=== PATIENT | female | born 1970 | race Caucasian/White ===

== ENCOUNTER 2017-07-02 13:35 | Emergency (ER) | payer MEDICARE, MEDICAID ==
[2017-07-02] MEDS ORDERED: Acetaminophen/Codeine 30-300mg Tablet ONE (14:51)
[2017-07-02] MEDS ORDERED: Dexamethasone 10 MG/ML VIAL ONE (14:52)
[2017-07-02] MEDS ORDERED: Ibuprofen 600 MG TAB ONE (14:52)
== END 2017-07-02 15:19 | disposition home or self-care (01) ==
LOC: SCSER 13:35
DX: M17.12 Unilateral primary osteoarthritis, left knee (principal); F32.9 Major depressive disorder, single episode, unspecified
CPT/HCPCS: 96372; J1100

== ENCOUNTER 2017-12-10 16:02 | Emergency (ER) | payer MEDICARE, MEDICAID ==
[2017-12-13 10:31] LABS: Chlamydia by PCR DETECTED (NotDetected); GC by PCR Not Detected (NotDetected)
== END 2017-12-10 16:49 | disposition home or self-care (01) ==
LOC: SCSER 16:02
DX: B37.2 Candidiasis of skin and nail (principal); E78.00 Pure hypercholesterolemia, unspecified; F32.9 Major depressive disorder, single episode, unspecified
CPT/HCPCS: 87480; 87491; 87510; 87591; 87660; 99283

== ENCOUNTER 2018-09-28 04:45 | Inpatient (IN) | payer MEDICARE, MEDICAID ==
[2018-09-28 06:02] LABS: Bilirubin Negative (Negative); Blood, Urine Large (Negative); Clarity CLEAR (Clear); Glucose, Urine (Dipstick) Negative (Negative); Leukocyte Moderate (Negative); Nitrite Negative (Negative); Protein, Urine (Dipstick) Negative (Neg-Trace); Specific Gravity, Urine 1.008 (1.002-1.036); pH, Urine 5.5 (5.0-9.0)
[2018-09-28 06:05] LABS: Bacteria/HPF None Seen HPF (None Seen); Hyaline Casts/LPF 0-3 HYALINE CAST LPF (0-3 Hyaline); Pathc Cast-AUWi Flag 0.14 (0-2.49); Squamous Epithelial 0-3 HPF (0-3)
[2018-09-28] MEDS ORDERED: Ondansetron PF 4 MG/2 ML Vial ONE (06:05)
[2018-09-28] MEDS ORDERED: Morphine 4 MG/ML VIAL ONE ×2 (06:05→06:37)
[2018-09-28] MEDS ORDERED: Acetaminophen 500 MG TAB ONE (06:05)
--- NOTE | 2018-09-28 06:49 | PDOC.FPRHP ---
- History of Present Illness History of Present Illness: 48 yo F with PMH mild MR, adrenal insufficiency, and HTN presents for worsening rash over abdomen and into groin area. Patient does not know how long she has had the rash. States she has been using over the counter creams and corn starch. Pt reported cough, congestion, dysuria. Denied fever. Pt was in pain on presentation and was mildly tachycardic. WBC was elevated to 16.5. Pt started on vanc, cefepime, clinda, and fluconazole. Given morphine for pain. - Allergies/Adverse Reactions Allergies Allergy/AdvReac Type Severity Reaction Status Date / Time iodine Allergy Verified 04/08/13 05:25 Penicillins Allergy Verified 04/08/13 05:25 - Home Medications Medication Instructions Recorded Confirmed Type Amitriptyline HCl [Elavil] 100 mg PO HS 04/08/13 04/08/13 History Atorvastatin Calcium 40 mg PO DAILY 04/08/13 04/08/13 History Benztropine Mesylate 1 mg PO HS 04/08/13 04/08/13 History Citalopram Hydrobromide 40 mg PO DAILY 04/08/13 04/08/13 History [Citalopram HBr] Divalproex Sodium [Divalproex 1,000 mg PO HS 04/08/13 04/08/13 History Sodium ER] Lorazepam [Ativan] 0.5 mg PO Q6HR PRN 04/08/13 04/08/13 History predniSONE 3 mg PO BID 04/08/13 04/08/13 History Levothyroxine Sodium [Synthroid] 75 mcg PO DAILY 04/09/13 04/09/13 History - History PMHx: hypothyroid, adrenal insufficiency, mild mental retardation, bipolar, heart murmur, elevated BP without dx of HTN, chronic low back pain, hypersomnia , obeisty, HLD, PSHx: teeth removed FHx: Cancer: mGM with ovarian cancer, mUncle with esophageal cancer. DM in father family. Social: smoking on and off for years, unknown pack years. Quit about 1 year ago. Denies alcohol or drug use. Per ED, patient lives with a caregiver. Per mother (who is MPOA but does not know much of her medical history) patient lives at home by herself. - Review of Systems General: denies: fever/chills, weight/appetite/sleep changes Eyes: reports: eye pain. denies: vision changes ENT: reports: nasal congestion, rhinorrhea Respiratory: reports: cough, congestion. denies: shortness of breath Gastrointestinal: reports: nausea, vomiting (x1 episode), abdominal pain Genitourinary: reports: incontinence (occasional), dysuria, polyuria Skin: reports: rashes (see HPI), lesions Musculoskeletal: reports: pain (over abdomen, "all over" per patient) Neurological: denies: numbness, weakness Psychological: reports: anxiety, depression - Vital signs BP: [146/75] HR: [109] RR: [20] Tmax: [99.8] Pox: [97]% on [RA] Wt: [127 kg] - Physical Exam Constitutional: NAD, awake, alert and oriented HEENT: normocephalic and atraumatic, PERRLA, EOMI, conjunctiva clear, grossly normal hearing, MMM, other (poor dentition) Neck: supple, no LAD Heart: RRR, normal S1/S2, no murmurs/rubs/gallops, pulses present Lungs: CTAB, no respiratory distress, good air movement, no rales/rhonchi, no wheezing Abdomen: soft, bowel sounds present, other (Erythematous, warm, indurated rash in umbilicus, thick underneath pannus traveling laterally to left flank, down bilaterally into creases of groin onto labia) Musculoskeletal: normal structure, normal tone Neurological: no focal deficit Skin: other (Erythematous, painful, warm, indurated rash in umbilicus, thick underneath pannus traveling laterally to left flank, down bilaterally into creases of groin onto labia) Psychiatric: normal mood and affect, other (poor memory, poor historian, poor judgment) FMR H&P: Results - Labs Result Diagrams: 09/28/18 06:25 09/28/18 06:25 Lab results: Urine Ketones Negative mg/dL (Negative) 09/28/18 05:30 Urine Blood Large (Negative) H 09/28/18 05:30 Urine Nitrite Negative (Negative) 09/28/18 05:30 Ur Leukocyte Esterase Moderate (Negative) H 09/28/18 05:30 Urine RBC 7-10 HPF (0-3) H 09/28/18 05:30 Urine WBC 7-10 HPF (0-3) H 09/28/18 05:30 Ur Squamous Epith Cells 0-3 HPF (0-3) 09/28/18 05:30 Urine Bacteria None Seen HPF (None Seen) 09/28/18 05:30 - EKG Interpretation EKG: tachycardic 105, otherwise NSR Twave inversion in lead III, V1 and V3 FMR H&P: A/P - Problem List (1) Cellulitis Current Visit: Yes Status: Acute Code(s): L03.90 - CELLULITIS, UNSPECIFIED (2) Adrenal insufficiency Current Visit: Yes Status: Chronic Code(s): E27.40 - UNSPECIFIED ADRENOCORTICAL INSUFFICIENCY (3) Sepsis Current Visit: Yes Status: Resolved Code(s): A41.9 - SEPSIS, UNSPECIFIED ORGANISM (4) Intellectual disability Current Visit: Yes Status: Chronic Code(s): F79 - UNSPECIFIED INTELLECTUAL DISABILITIES (5) Bipolar 1 disorder Current Visit: Yes Status: Chronic Code(s): F31.9 - BIPOLAR DISORDER, UNSPECIFIED (6) Heart murmur Current Visit: Yes Status: Chronic Code(s): R01.1 - CARDIAC MURMUR, UNSPECIFIED (7) Hypothyroid Current Visit: Yes Status: Chronic Code(s): E03.9 - HYPOTHYROIDISM, UNSPECIFIED (8) Obesity Current Visit: Yes Status: Chronic Code(s): E66.9 - OBESITY, UNSPECIFIED - Plan Cellulitus -Most likely fungal that has spread intertriginously, along pannus to left flank and down into groin -Erythematous, painful, warm, indurated rash in umbilicus, thick underneath pannus traveling laterally to left flank, down bilaterally into creases of groin onto labia -Started Vanc, cefepime, fluconazole, and clindamycin -MIVF LR @ 150 -Consider imaging of abdomen to look for underlying abscesses as patient may not tolerate ultrasound -Nystatin -Wound care consulted -Morphine, tramadol, tylenol for pain control Sepsis (resolved) -Presented in pain with tachycardia, tachycardia resolved. WBC elevated -Blood cultures pending, on abx and IVF Adrenal insufficiency -Triple her home dose of hydrocortisone (now 30 mg in AM, and 15 in PM) x 3 days starting 09/28/18 Bipolar -Home medications Mild Intellectual disability -Pt should not be living on her own, seems unable to appropriately care for self Heart murmur -Aware Hypothyroidism - home medication - check TSH Elevated BP w/o Htn -home medications Obesity Dispo: >2 midnights Lovenox for PPX Diet: regular Code status: Chemical code, with shocks for resuscitation if indicated. Patient does not want chest compressions or intubation. Patient understands that she could without resuscitation. Mother (ANDREW) at bedside during discussion. FMR H&P: Upper Level - Pertinent history 48 yo WF PMH Bipolar disorder, anxiety, depression, hypothyroidism, obesity, and adrenal insufficiency. She presents to the ER with a CC of vaginal itching and a lower abdominal skin rash. Patient is poor historian and does not know how long the rash has been developing. She states she has tried OTC antifungal cream and corn starch. Mother present at bedside and states she believes the rash developed sometime in the last 2-3 weeks but is not sure. Patient denies fever/chills. Reports abdominal pain associated with the skin rash. ER course: Labs, clinda 900 mg IV, Cefepime 2g IV, vanc 1g IV, morphine 8 mg IVP , Zofran, APAP 1g, NS 1L. - Pertinent findings Vitals: initial pulse 109 but at time of exam 86. Vitals otherwise WNL. GEN: NAD, A&Ox4, childish behavior, poor historian. ENT: Poor dentition CV: RRR, no murmur Pulm: CTA-B, normal effort. Abdomen: Tenderness over skin infection, obese Skin: Large area of excoriated, erythematous, and indurated skin extending from the umbilicus to the superior portion of the vagina and laterally approximately 12 inches. It is difficult to estimate the entire area as much of the infected skin is under her pannus. Labs: Na 131, Cr 0.96, GFR 63 (at baseline), lactic acid 1.5. WBC 16.5, Hemoglobin 11.9, Neutrophils 69.5, monocytes 13.4, UA Blood large, LE moderate - Plan Date/Time: 09/28/18 0644 I, Terry Fernandez MD, have evaluated this patient and agree with findings/plan as outlined by sport intern resident. Pertinent changes/additions are listed here. 1. Sepsis (resolved) 2/2 Cellulitis: patient was initially mildly tachycardic which had resolved by the time of my examination. She also has a white count. Her skin infection likely started as candidisis that now has a superimposed bacterial infection. Start Vanc, Clinda, cefepime, and IV fluconazole initially and will transition to PO once cellulitis improves. Will also give nystatin powder on the effected area. Would also consider imaging her abdomen to rule out underlying abscess as physical exam is difficult and limited by her morbid obesity. Will consult wound care for recommendations. Consider general surgery consultation if concern for underlying abscess. Blood cultures taken in the ER. PRN morphine for pain. 2. Adrenal insufficiency: Takes hydrocortisone 10 mg qAM and 5 mg qHS. Will triple dose for 3 days during acute phase of illness then return to base dosing 3. Hypothyroidism: check TSH, continue synthroid 4. Intellectual disability: CM consult for discharge planning. At minimum, the patient needs home health but I believe she would do better in a [place] [facility] care facility. 5. Bipolar disorder: continue meds. 6. Obesity: stable 7. Chronic back pain: home meds. 8. Diet: Regular 9. PPx: Lovenox 10 CODE: chemical code, defibrilation only. While the patient does have some degree of intellectual disability, I believe she understands what would happen to her in the event cardiac/respiratory arrest. Discussed with Dr. Leung. Addendum - Attending - Attending Attestation Date/Time: 09/28/18 1038 I personally evaluated the patient and discussed the management with Dr. Womack. I agree with the History, Examination, Assessment and Plan documented above with any addition or exceptions noted below. The patient presents with a rash for unknown period of time. Pt's mom initially stated that she's been fighting the rash for about a year and states it could have been bad for a week to a month. It appears the patient had been using corn starch and hydrogen peroxide. The rash extends from under umbilicus to perinuem but stops before the anus and is red, tender to palpation with macerated skin. Will continue IV antibiotics clindamycin and cefepime. Stop vanc. Continue fluconazole. Pt will have a wound care consult. Pt also has adrenal insufficiency and stress dose of steroids will be given.
[2018-09-28 06:54] LABS: #Basophils 0.1 thou/uL (0.0-0.2); #Eosinphils 0.1 thou/uL (0.0-0.7); #Lymphocytes 2.7 thou/uL (1.20-3.40); #Monocytes 2.2 thou/uL (0.11-0.59); #Neutrophils 11.4 thou/uL (1.40-6.50); %Basophils 0.4 % (0.0-1.0); %Eosinophils 0.5 % (0.0-10.0); %Lymphocytes 16.5 % (21.0-51.0); %Monocytes 13.4 % (0.0-10.0); %Neutrophils 69.2 % (42.0-75.0); Hemoglobin 11.9 g/dL (12.0-16.0); Mean Corpuscular HGB CONC 32.8 g/dL (32.0-36.0); Mean Corpuscular Hemoglobin 30.9 pg (27.0-31.0); Mean Corpuscular Volume 94.3 fL (78.0-98.0); Mean Platelet Volume 9.9 fL (7.4-10.4); Platelet Count 243 thou/uL (130-400); Red Blood Cell (RBC) Count 3.85 mill/uL (4.20-5.40); White Blood Cell (WBC) Count 16.5 thou/uL (4.8-10.8)
[2018-09-28] MEDS ORDERED: VANCOMYCIN IVPB PRN (06:55)
[2018-09-28] MEDS ORDERED: Clindamycin/D5W 900 MG in Premix Bag 1 BAG IVPB SCH (07:00)
[2018-09-28] MEDS ORDERED: Cefepime 2 GM in Sodium Chloride 0.9% 100 ML IVPB SCH (07:00)
[2018-09-28] MEDS ORDERED: Morphine 4 MG/ML VIAL SLOW IVP PRN (07:07)
[2018-09-28 07:21] LABS: ALT (SGPT) 8 U/L (8-55); AST (SGOT) 21 U/L (5-34); Acetaminophen Less than 6.0 mcg/mL (10.0-30.0); Albumin 3.4 g/dL (3.5-5.0); Alcohol Less than 10 mg/dL (Less than 10); Alkaline Phosphatase 75 U/L (40-150); Anion Gap 11 mmol/L (10-20); BUN (Urea Nitrogen) 13 mg/dL (7.0-18.7); Bilirubin, Total 0.9 mg/dL (0.2-1.2); Calc. Creatinine Clearance 0 mL/min (70-130); Carbon Dioxide 24 mmol/L (22-29); Chloride 100 mmol/L (98-107); Estimated GFR-MDRD 63; Globulin 3.9 g/dL (2.4-3.5); Glucose 116 mg/dL (70-105); Lipase 7 U/L (8-78); Potassium 4.4 mmol/L (3.5-5.1); Protein, Total 7.3 g/dL (6.0-8.3); Salicylate Less than 8.0 mg/dL (15.0-30.0); Sodium 131 mmol/L (136-145)
[2018-09-28] MEDS ORDERED: traMADol HCl 50 MG TAB PO PRN (07:22)
[2018-09-28] MEDS ORDERED: Nystatin Powder 15 GM BOT TOP PRN (07:28)
[2018-09-28] MEDS ORDERED: risperiDONE 1 MG TAB PO SCH ×3 (07:30→21:00)
[2018-09-28] MEDS ORDERED: Hydrocortisone 10 mg Tablet PO SCH (07:30)
[2018-09-28] MEDS ORDERED: Acetaminophen 325 MG TAB PO PRN (08:47)
[2018-09-28] MEDS ORDERED: Acetaminophen 650 MG Suppository PR PRN (08:47)
[2018-09-28] MEDS ORDERED: buPROPion 75 MG TAB PO SCH (09:00)
[2018-09-28] MEDS ORDERED: CITALOPRAM HYDROBROMIDE 40 MG PO SCH (09:00)
[2018-09-28 11:45] VITALS: BMI 39.8
[2018-09-28] MEDS ORDERED: HYDROcodone/Acetaminophen 5/325 mg Tablet PO PRN (12:10)
[2018-09-28] MEDS: Clindamycin/D5W 600 MG in Premix Bag 1 BAG IVPB SCH ×2 (12:21→18:44)
[2018-09-28] MEDS: Lactated Ringer's 1,000 ML IV SCH ×3 (13:10→20:55)
[2018-09-28] MEDS: Atorvastatin Calcium 40 MG TAB PO SCH (13:10)
[2018-09-28] MEDS: Citalopram 20 MG TAB PO SCH (13:11)
[2018-09-28] MEDS: Fluconazole In NaCl,Iso-Osm 400 MG in Premix Bag 1 BAG IVPB SCH (13:12)
[2018-09-28] MEDS: Enoxaparin Sodium 40 MG/0.4 ML SYRINGE SC SCH (13:12)
[2018-09-28] MEDS: Hydrocortisone 10 mg Tablet PO SCH ×2 (13:13→20:40)
[2018-09-28] MEDS ORDERED: VANCOMYCIN HCL IVPB SCH (13:45)
[2018-09-28] MEDS ORDERED: SODIUM CHLORIDE 0.9% IVPB SCH (13:45)
[2018-09-28] MEDS ORDERED: Vancomycin HCl 500 MG in Sodium Chloride 0.9% 100 ML IVPB SCH (14:00)
[2018-09-28] MEDS: Acetaminophen 325 MG TAB PO SCH ×2 (16:38→18:48)
[2018-09-28] MEDS: Ibuprofen 800 MG TAB PO SCH ×2 (16:38→20:40)
[2018-09-28] MEDS ORDERED: Vancomycin HCl 1.5 GM in Sodium Chloride 0.9% 250 ML 300 ML IVPB SCH (20:00)
[2018-09-28] MEDS: risperiDONE 1 MG TAB PO SCH (20:38)
[2018-09-28] MEDS: traMADol HCl 50 MG TAB PO SCH (20:39)
[2018-09-28] MEDS: Folic Acid 1 MG TAB PO SCH (20:39)
[2018-09-28] MEDS: Benztropine 1 MG TAB PO SCH (20:41)
[2018-09-28] MEDS: Bupropion 150 MG SR TAB PO SCH (20:41)
[2018-09-28] MEDS: Nystatin Powder 15 GM BOT TOP SCH (20:44)
[2018-09-28] MEDS: Amitriptyline HCl 100 MG TAB PO SCH (20:54)
[2018-09-28] MEDS: Cefepime 2 GM in Sodium Chloride 0.9% 100 ML IVPB SCH (20:54)
[2018-09-28] MEDS ORDERED: Non-Formulary Item 1 EACH (Folic Acid [Folic Acid] 0.4 MG) PO SCH (21:00)
[2018-09-28] MEDS ORDERED: BUPROPION HCL 150 MG PO SCH (21:00)
[2018-09-28] MEDS ORDERED: RISPERIDONE 2 MG PO SCH (21:00)
[2018-09-28] MEDS ORDERED: MELATONIN 1 MG PO SCH ×2 (21:00)
[2018-09-29] MEDS: Acetaminophen 325 MG TAB PO SCH ×4 (01:05→18:50)
[2018-09-29] MEDS: Clindamycin/D5W 600 MG in Premix Bag 1 BAG IVPB SCH ×5 (01:05→23:51)
[2018-09-29] MEDS: Ibuprofen 800 MG TAB PO SCH ×3 (05:13→20:14)
[2018-09-29] MEDS: Levothyroxine Sodium 100 MCG TAB PO SCH (05:13)
[2018-09-29] MEDS: Lactated Ringer's 1,000 ML IV SCH ×4 (05:13→21:44)
[2018-09-29] MEDS ORDERED: Levothyroxine Sodium 100 MCG TAB PO SCH (06:00)
[2018-09-29 06:44] LABS: #Basophils 0.1 thou/uL (0.0-0.2); #Eosinphils 0.2 thou/uL (0.0-0.7); #Lymphocytes 2.5 thou/uL (1.20-3.40); #Monocytes 0.9 thou/uL (0.11-0.59); #Neutrophils 7.9 thou/uL (1.40-6.50); %Basophils 0.5 % (0.0-1.0); %Eosinophils 1.5 % (0.0-10.0); %Lymphocytes 21.7 % (21.0-51.0); %Monocytes 7.7 % (0.0-10.0); %Neutrophils 68.6 % (42.0-75.0); Hemoglobin 10.5 g/dL (12.0-16.0); Mean Corpuscular HGB CONC 32.6 g/dL (32.0-36.0); Mean Corpuscular Volume 95.2 fL (78.0-98.0); Mean Platelet Volume 9.7 fL (7.4-10.4); Platelet Count 232 thou/uL (130-400); RBC Distribution Width 12.8 % (11.5-14.5); Red Blood Cell (RBC) Count 3.39 mill/uL (4.20-5.40); White Blood Cell (WBC) Count 11.5 thou/uL (4.8-10.8)
--- NOTE | 2018-09-29 06:59 | PDOC.FM ---
- Subjective Subjective: Noris Rosas seen at bedside this morning. She is doing well, there were no acute events overnight. There are no changes in the rash today. Patient denies any fever, chills, chest pain, dyspnea, n/v. - Objective MAR Reviewed: Yes Vital Signs & Weight: Vital Signs (12 hours) Temp Pulse Resp BP Pulse Ox 09/29/18 04:00 97.5 F L 86 18 127/77 92 L 09/29/18 00:00 98.4 F 86 16 138/73 92 L 09/28/18 20:00 97.8 F 86 16 107/67 94 L Weight Weight 108.59 kg Result Diagrams: 09/29/18 06:08 09/29/18 06:08 Phys Exam - Physical Examination Constitutional: NAD HEENT: moist MMs, sclera anicteric Neck: supple, full ROM Respiratory: no wheezing, no rales, no rhonchi, clear to auscultation bilateral Cardiovascular: RRR, no significant murmur Gastrointestinal: soft, non-tender Musculoskeletal: no edema, pulses present Neurological: non-focal, moves all 4 limbs Psychiatric: A&O x 3 Deviation from normal: erythematous, macerated skin in intertrignous areas of pannus, groin Dx/Plan (1) Sepsis Code(s): A41.9 - SEPSIS, UNSPECIFIED ORGANISM Status: Resolved (2) Cellulitis Code(s): L03.90 - CELLULITIS, UNSPECIFIED Status: Acute (3) Adrenal insufficiency Code(s): E27.40 - UNSPECIFIED ADRENOCORTICAL INSUFFICIENCY Status: Chronic (4) Bipolar 1 disorder Code(s): F31.9 - BIPOLAR DISORDER, UNSPECIFIED Status: Chronic (5) Heart murmur Code(s): R01.1 - CARDIAC MURMUR, UNSPECIFIED Status: Chronic (6) Hypothyroid Code(s): E03.9 - HYPOTHYROIDISM, UNSPECIFIED Status: Chronic (7) Intellectual disability Code(s): F79 - UNSPECIFIED INTELLECTUAL DISABILITIES Status: Chronic (8) Obesity Code(s): E66.9 - OBESITY, UNSPECIFIED Status: Chronic - Plan Plan: 1) Cellulitus - Most likely fungal that has spread intertriginously - Started Vanc, cefepime, fluconazole, and clindamycin upon admission - Narrowing regimen today to cefepime, nystatin, fluconazole, and clinda - LR @ 150 - Consider imaging of abdomen to look for underlying abscesses as patient may not tolerate ultrasound - Wound care consulted - Morphine, tramadol, tylenol for pain control 2) Sepsis (resolved) - Presented in pain with tachycardia, tachycardia resolved. WBC elevated - Blood cultures NGTD, on abx and IVF 3) Adrenal insufficiency - Triple her home dose of hydrocortisone (now 30 mg in AM, and 15 in PM) x 3 days starting 09/28/18 4) Bipolar - Home medications 5) Mild Intellectual disability - Pt should not be living on her own, seems unable to appropriately care for self - Has caregiver that comes to home daily to check on her 6) Heart murmur -Aware 7) Hypothyroidism - home medication - check TSH 8) Elevated BP w/o Htn -home medications Addendum - Attending - Attending Attestation Date/Time: 09/29/18 3240 I personally evaluated the patient and discussed the management with Dr. Lim. I agree with the History, Examination, Assessment and Plan documented above with any addition or exceptions noted below. The patient's erythema is slowly improving. Will continue IV antibiotics and fluconazole. Will continue wound care.
[2018-09-29] MEDS: Cefepime 2 GM in Sodium Chloride 0.9% 100 ML IVPB SCH ×3 (07:30→20:16)
[2018-09-29 07:31] LABS: ALT (SGPT) Less than 7 U/L (8-55); AST (SGOT) 16 U/L (5-34); Albumin 3.2 g/dL (3.5-5.0); Alkaline Phosphatase 73 U/L (40-150); Anion Gap 13 mmol/L (10-20); BUN (Urea Nitrogen) 13 mg/dL (7.0-18.7); Bilirubin, Total 0.6 mg/dL (0.2-1.2); Calc. Creatinine Clearance 113 mL/min (70-130); Calcium 8.9 mg/dL (7.8-10.44); Carbon Dioxide 25 mmol/L (22-29); Chloride 102 mmol/L (98-107); Estimated GFR-MDRD 55; Globulin 3.4 g/dL (2.4-3.5); Glucose 113 mg/dL (70-105); Potassium 3.9 mmol/L (3.5-5.1); Protein, Total 6.6 g/dL (6.0-8.3); Sodium 136 mmol/L (136-145)
[2018-09-29] MEDS: Cyanocobalamin (Vitamin B-12) 1,000 MCG TAB PO SCH (08:17)
[2018-09-29] MEDS: Ascorbic Acid 500 mg Chewable Tablet PO SCH (08:23)
[2018-09-29] MEDS: Citalopram 20 MG TAB PO SCH (08:23)
[2018-09-29] MEDS: Atorvastatin Calcium 40 MG TAB PO SCH (08:23)
[2018-09-29] MEDS: Ferrous Sulfate 325 MG TAB PO SCH (08:23)
[2018-09-29] MEDS: Enoxaparin Sodium 40 MG/0.4 ML SYRINGE SC SCH (08:23)
[2018-09-29] MEDS: Bupropion 150 MG SR TAB PO SCH ×2 (08:24→20:15)
[2018-09-29] MEDS: traMADol HCl 50 MG TAB PO SCH ×2 (08:25→20:15)
[2018-09-29] MEDS: Nystatin Powder 15 GM BOT TOP SCH ×2 (08:27→20:17)
[2018-09-29] MEDS ORDERED: Non-Formulary Item 1 EACH (Cyanocobalamin (Vitamin B-12) [Vitamin B-12] 500 MCG) PO SCH (09:00)
[2018-09-29] MEDS ORDERED: Levothyroxine Sodium 75 MCG TAB PO SCH (09:00)
[2018-09-29] MEDS ORDERED: TURMERIC CURCUMIN 500 MG PO SCH (09:00)
[2018-09-29] MEDS ORDERED: TURMERIC ROOT EXTRACT 500 MG PO SCH (09:00)
[2018-09-29] MEDS ORDERED: Non-Formulary Item 1 EACH (Cholecalciferol (Vitamin D3) [Vitamin D3] 25 MCG) PO SCH (09:00)
[2018-09-29] MEDS ORDERED: IRON 28 MG PO SCH (09:00)
[2018-09-29] MEDS: Hydrocortisone 10 mg Tablet PO SCH ×2 (09:53→20:17)
[2018-09-29] MEDS: Fluconazole In NaCl,Iso-Osm 400 MG in Premix Bag 1 BAG IVPB SCH (09:53)
[2018-09-29] MEDS: risperiDONE 1 MG TAB PO SCH ×2 (09:53→20:16)
[2018-09-29] MEDS: Folic Acid 1 MG TAB PO SCH (20:14)
[2018-09-29] MEDS: Benztropine 1 MG TAB PO SCH (20:15)
[2018-09-29] MEDS: Amitriptyline HCl 100 MG TAB PO SCH (20:16)
[2018-09-30] MEDS: Acetaminophen 325 MG TAB PO SCH ×4 (00:14→18:27)
[2018-09-30] MEDS: Lactated Ringer's 1,000 ML IV SCH ×3 (05:15→20:00)
[2018-09-30] MEDS: Clindamycin/D5W 600 MG in Premix Bag 1 BAG IVPB SCH ×2 (05:15→11:29)
[2018-09-30] MEDS: Levothyroxine Sodium 100 MCG TAB PO SCH (05:15)
[2018-09-30] MEDS: Ibuprofen 800 MG TAB PO SCH ×3 (05:16→19:55)
--- NOTE | 2018-09-30 06:32 | PDOC.FM ---
- Subjective Subjective: Patient and nurse report an episode of diarrhea early last night. Patient stated that she really needed to go but did endorse blood in her stool. Also had a nosebleed overnight but says she gets them often. On exam this AM, patient reports pain in her rash site that is worsened with movement. Denies any N/V or fever/chills. - Objective MAR Reviewed: Yes Vital Signs & Weight: Vital Signs (12 hours) Temp Pulse Resp BP Pulse Ox 09/29/18 20:00 97.5 F L 93 18 120/63 97 Weight Admit Weight 108.59 kg Weight 108.59 kg I&O: 09/28/18 09/29/18 09/30/18 06:59 06:59 06:59 Intake Total 960 Balance 960 Result Diagrams: 09/30/18 06:37 09/30/18 06:37 Phys Exam - Physical Examination Constitutional: NAD HEENT: moist MMs Poor dentition Neck: supple, full ROM Respiratory: no wheezing, no rales, no rhonchi, clear to auscultation bilateral Cardiovascular: RRR grade 2/6 systolic murmur Gastrointestinal: soft, non-tender, positive bowel sounds Musculoskeletal: no edema Neurological: non-focal, moves all 4 limbs Psychiatric: normal affect, A&O x 3 Deviation from normal: contact dermatitis present under pannus with surrounding erythema & warmth -: raw, erythematous skin patches slightly improved from admission Dx/Plan (1) Cellulitis Code(s): L03.90 - CELLULITIS, UNSPECIFIED Status: Acute (2) Adrenal insufficiency Code(s): E27.40 - UNSPECIFIED ADRENOCORTICAL INSUFFICIENCY Status: Chronic (3) Bipolar 1 disorder Code(s): F31.9 - BIPOLAR DISORDER, UNSPECIFIED Status: Chronic (4) Heart murmur Code(s): R01.1 - CARDIAC MURMUR, UNSPECIFIED Status: Chronic (5) Hypothyroid Code(s): E03.9 - HYPOTHYROIDISM, UNSPECIFIED Status: Chronic (6) Intellectual disability Code(s): F79 - UNSPECIFIED INTELLECTUAL DISABILITIES Status: Chronic (7) Obesity Code(s): E66.9 - OBESITY, UNSPECIFIED Status: Chronic (8) Sepsis Code(s): A41.9 - SEPSIS, UNSPECIFIED ORGANISM Status: Resolved (9) Hypokalemia Code(s): E87.6 - HYPOKALEMIA Status: Acute - Plan Plan: 1) Cellulitus - Most likely fungal with possible superimposed bacterial infection due to poor wound care that has spread intertriginously. - Will continue on cefepime, nystatin, fluconazole, and clinda - Will consider de-escalating IVFs once patient is tolerating PO well. - Wound care consulted. - Will consider only having tylenol and ibuprofen available PRN as patient has not requested any morphine since 09/28/17. 2) Sepsis (resolved) - Presented in pain with tachycardia but tachycardia resolved & WBC has downtrended. - Blood cultures NGTD, on abx and IVF 3) Adrenal insufficiency - Triple her home dose of hydrocortisone (now 30 mg in AM, and 15 in PM) x 3 days starting 09/28/18 4) Bipolar - Will continue home medications. 5) Mild Intellectual disability - Pt should not be living on her own, seems unable to appropriately care for self - Has caregiver that comes to home daily to check on her - CM consulted this AM to eval for placement 6) Heart murmur -Aware 7) Hypothyroidism - Will decrease synthroid dose from 100mcg QD to 75mcg QD as TSH low at 0.1687. - Will recheck TSH in 6-8 weeks. 8) Elevated BP w/o Htn - Aware, patient has had one slightly elevated BP since admission. Otherwise, BP has been low to normal. - Will continue to monitor. 9) Hypokalemia - K of 2.9 this AM. Likely 2/2 diarrhea patient had last night. Will replace with 40 PO this AM and recheck 4 hours post-replacement and replace PRN. - Will consider stool studies if diarrhea persists. 10) hematochezia: - Will do a rectal exam and consider stool studies if diarrhea persists. 11) Epistaxis - Patient says she normally has nosebleeds at home - No active bleeding on exam this AM. - Will order saline nasal spray to be used daily and encourage vaseline QHS to prevent nosebleeds.
[2018-09-30 07:13] LABS: #Basophils 0.1 thou/uL (0.0-0.2); #Eosinphils 0.2 thou/uL (0.0-0.7); #Monocytes 0.4 thou/uL (0.11-0.59); #Neutrophils 3.4 thou/uL (1.40-6.50); %Basophils 0.7 % (0.0-1.0); %Eosinophils 2.2 % (0.0-10.0); %Lymphocytes 42.7 % (21.0-51.0); %Monocytes 6.3 % (0.0-10.0); %Neutrophils 48.1 % (42.0-75.0); Mean Corpuscular HGB CONC 32.9 g/dL (32.0-36.0); Mean Corpuscular Hemoglobin 31.3 pg (27.0-31.0); Mean Corpuscular Volume 95.3 fL (78.0-98.0); Platelet Count 262 thou/uL (130-400); RBC Distribution Width 12.8 % (11.5-14.5)
[2018-09-30 07:27] LABS: ALT (SGPT) Less than 7 U/L (8-55); AST (SGOT) 13 U/L (5-34); Albumin 3.2 g/dL (3.5-5.0); Alkaline Phosphatase 58 U/L (40-150); Anion Gap 13 mmol/L (10-20); BUN (Urea Nitrogen) 10 mg/dL (7.0-18.7); Bilirubin, Total 0.4 mg/dL (0.2-1.2); Calc. Creatinine Clearance 118 mL/min (70-130); Calcium 8.7 mg/dL (7.8-10.44); Carbon Dioxide 23 mmol/L (22-29); Chloride 103 mmol/L (98-107); Estimated GFR-MDRD 58; Globulin 3.3 g/dL (2.4-3.5); Glucose 71 mg/dL (70-105); Protein, Total 6.5 g/dL (6.0-8.3); Sodium 136 mmol/L (136-145)
[2018-09-30 07:35] LABS: Potassium 2.9 mmol/L (3.5-5.1)
[2018-09-30] MEDS: Cefepime 2 GM in Sodium Chloride 0.9% 100 ML IVPB SCH (08:00)
[2018-09-30] MEDS: Hydrocortisone 10 mg Tablet PO SCH ×3 (08:01→19:56)
[2018-09-30] MEDS: Citalopram 20 MG TAB PO SCH (08:01)
[2018-09-30] MEDS: Bupropion 150 MG SR TAB PO SCH ×2 (08:01→19:53)
[2018-09-30] MEDS: Atorvastatin Calcium 40 MG TAB PO SCH ×2 (08:02→08:03)
[2018-09-30] MEDS: risperiDONE 1 MG TAB PO SCH ×3 (08:03→19:53)
[2018-09-30] MEDS: Ferrous Sulfate 325 MG TAB PO SCH (08:03)
[2018-09-30] MEDS: Ascorbic Acid 500 mg Chewable Tablet PO SCH (08:03)
[2018-09-30] MEDS: Cyanocobalamin (Vitamin B-12) 1,000 MCG TAB PO SCH (08:03)
[2018-09-30] MEDS: Enoxaparin Sodium 40 MG/0.4 ML SYRINGE SC SCH (08:05)
[2018-09-30] MEDS: Nystatin Powder 15 GM BOT TOP SCH ×2 (08:08→19:52)
[2018-09-30] MEDS ORDERED: Potassium Chloride 20 MEQ TAB PO SCH ×3 (08:36→17:00)
[2018-09-30] MEDS: Fluconazole In NaCl,Iso-Osm 400 MG in Premix Bag 1 BAG IVPB SCH (09:31)
[2018-09-30] MEDS: Vancomycin HCl 1.75 GM in Sodium Chloride 0.9% 500 ML IVPB SCH (12:39)
[2018-09-30 13:38] LABS: INR-International Normal Ratio 1.1; PTT 35.1 SEC (22.9-36.1); Prothrombin Time 13.8 SEC (12.0-14.7)
[2018-09-30 13:42] LABS: Anion Gap 12 mmol/L (10-20); BUN (Urea Nitrogen) 9 mg/dL (7.0-18.7); Calc. Creatinine Clearance 121 mL/min (70-130); Carbon Dioxide 24 mmol/L (22-29); Chloride 104 mmol/L (98-107); Estimated GFR-MDRD 60; Glucose 90 mg/dL (70-105); Potassium 4.2 mmol/L (3.5-5.1); Sodium 136 mmol/L (136-145)
[2018-09-30] MEDS: Nystatin Cream 30 GM TUBE TOP SCH ×2 (14:50→19:56)
[2018-09-30] MEDS: Sodium Chloride 0.65% Nasal 44 ML BOT EA NARE SCH ×2 (14:51→19:54)
[2018-09-30] MEDS ORDERED: Nystatin Cream 30 GM TUBE TOP SCH (15:00)
[2018-09-30] MEDS: traMADol HCl 50 MG TAB PO PRN (15:36)
[2018-09-30 19:01] LABS: Bilirubin Negative (Negative); Blood, Urine Trace (Negative); Clarity CLEAR (Clear); Glucose, Urine (Dipstick) Negative (Negative); Leukocyte Negative (Negative); Nitrite Negative (Negative); Protein, Urine (Dipstick) Negative (Neg-Trace); Specific Gravity, Urine 1.004 (1.002-1.036); Urobilinogen 0.2 mg/dL (0.2-1.0)
[2018-09-30 19:02] LABS: Bacteria/HPF None Seen HPF (None Seen); Hyaline Casts/LPF 0-3 HYALINE CAST LPF (0-3 Hyaline); Squamous Epithelial 0-3 HPF (0-3); WBC/HPF None Seen HPF (0-3)
[2018-09-30] MEDS: Benztropine 1 MG TAB PO SCH (19:53)
[2018-09-30] MEDS: diphenhydrAMINE 25 MG CAP PO PRN (19:53)
[2018-09-30] MEDS: Amitriptyline HCl 100 MG TAB PO SCH (19:54)
[2018-09-30] MEDS: Folic Acid 1 MG TAB PO SCH (19:55)
[2018-10-01] MEDS: Acetaminophen 325 MG TAB PO SCH ×4 (00:42→18:35)
[2018-10-01] MEDS: Vancomycin HCl 1.75 GM in Sodium Chloride 0.9% 500 ML IVPB SCH ×2 (00:42→14:20)
[2018-10-01] MEDS: Lactated Ringer's 1,000 ML IV SCH ×3 (01:06→15:32)
[2018-10-01] MEDS: Ibuprofen 800 MG TAB PO SCH ×3 (05:46→21:22)
[2018-10-01] MEDS: Levothyroxine Sodium 75 MCG TAB PO SCH (05:46)
[2018-10-01] MEDS ORDERED: Levothyroxine Sodium 75 MCG TAB PO SCH (06:00)
--- NOTE | 2018-10-01 06:50 | PDOC.FM ---
- Subjective Subjective: NAEO. Patient reports improvement of itching and discomfort around rash on abdomen. Denies any fever or chills but endorses some nausea on exam. - Objective MAR Reviewed: Yes Vital Signs & Weight: Vital Signs (12 hours) Temp Pulse Resp BP Pulse Ox 09/30/18 20:00 97.7 F 74 16 138/73 96 Weight Admit Weight 108.59 kg Weight 108.59 kg I&O: 09/29/18 09/30/18 10/01/18 06:59 06:59 06:59 Intake Total 960 2462 Balance 960 2462 Result Diagrams: 10/01/18 07:53 10/01/18 07:53 Phys Exam - Physical Examination Constitutional: NAD HEENT: moist MMs Neck: supple, full ROM Respiratory: no wheezing, no rales, no rhonchi, clear to auscultation bilateral Cardiovascular: RRR, no significant murmur Gastrointestinal: soft, positive bowel sounds Musculoskeletal: no edema Neurological: non-focal, moves all 4 limbs Psychiatric: normal affect, A&O x 3 Skin: normal turgor Deviation from normal: improved panniculitis with less dry skin along borders & decreased erythema -: along borders; still TTP and with movement Dx/Plan (1) Cellulitis Code(s): L03.90 - CELLULITIS, UNSPECIFIED Status: Acute (2) Adrenal insufficiency Code(s): E27.40 - UNSPECIFIED ADRENOCORTICAL INSUFFICIENCY Status: Chronic (3) Bipolar 1 disorder Code(s): F31.9 - BIPOLAR DISORDER, UNSPECIFIED Status: Chronic (4) Heart murmur Code(s): R01.1 - CARDIAC MURMUR, UNSPECIFIED Status: Chronic (5) Hypothyroid Code(s): E03.9 - HYPOTHYROIDISM, UNSPECIFIED Status: Chronic (6) Intellectual disability Code(s): F79 - UNSPECIFIED INTELLECTUAL DISABILITIES Status: Chronic (7) Obesity Code(s): E66.9 - OBESITY, UNSPECIFIED Status: Chronic (8) Sepsis Code(s): A41.9 - SEPSIS, UNSPECIFIED ORGANISM Status: Resolved (9) Hypokalemia Code(s): E87.6 - HYPOKALEMIA Status: Acute - Plan Plan: 1) Cellulitus - Most likely fungal with possible superimposed bacterial infection due to poor wound care that has spread intertriginously. - Will continue nystatin & fluconazole & vancomycin that was restarted yesterday. Stopped cefepime and clindamycin. - Will consider de-escalating IVFs once patient is tolerating PO well. - Wound care consulted and on board. - Will consider only having tylenol and ibuprofen available PRN as patient has not requested any morphine since 09/28/17. 2) Sepsis (resolved) - Presented in pain with tachycardia but tachycardia resolved & WBC has downtrended. - Blood cultures negative at 48 hours, on abx and IVF 3) Adrenal insufficiency - Triple her home dose of hydrocortisone due to stress of illness (now 30 mg in AM, and 15 in PM) x 3 days starting 09/28/18 4) Bipolar - Will continue home medications. 5) Mild Intellectual disability - Pt should not be living on her own, seems unable to appropriately care for self - Reported to CM that she is living with her mother and plans to go back with her upon d/c. CM confirmed with patient's mother yesterday as well. Will try to confirm this plan with mother today. 6) Heart murmur -Aware 7) Hypothyroidism - Will continue at 100mcg QD despite low TSH as illness can oftentimes falsely change TSH levels. Would prefer patient be over vs. undertreated. - Will recheck need to ensure follow-up TSH check in 6-8 weeks once illness has resolved with PCP. 8) Elevated BP w/o HTN - Aware, patient has had one slightly elevated BP since admission. Otherwise, BP has been low to normal. - Will continue to monitor. 9) Hypokalemia - K of 2.9 yesterday that increased to 4.6 after 40mEq PO. Likely 2/2 diarrhea patient had last night. - Will get repeat BMP this AM and replace K PRN. Mg was also low NL at 1.6 yesterday so will recheck today and replace PRN. 10) hematochezia: - FOBT pending. 11) Epistaxis - Patient says she normally has nosebleeds at home - Will continue saline nasal spray to be used daily and encourage vaseline QHS to prevent nosebleeds recurrent nosebleeds 12) diarrhea - one episode of diarrhea early the night of 09/29 - C diff studies pending given patient's extensive and broad antibiotic course since admission - Will continue to monitor Addendum - Attending - Attending Attestation Date/Time: 10/01/18 1850 I personally evaluated the patient and discussed the management with Dr. Gonzalez I agree with the History, Examination, Assessment and Plan documented above with any addition or exceptions noted below. Patient appears improved no further loose BMs watch/replace KCL and magnesium. Advance activity continue IV diflucan today transition po soon.
[2018-10-01 08:39] LABS: #Basophils 0.1 thou/uL (0.0-0.2); #Eosinphils 0.1 thou/uL (0.0-0.7); #Lymphocytes 2.6 thou/uL (1.20-3.40); #Monocytes 0.9 thou/uL (0.11-0.59); #Neutrophils 4.3 thou/uL (1.40-6.50); %Basophils 0.7 % (0.0-1.0); %Eosinophils 1.5 % (0.0-10.0); %Lymphocytes 33.1 % (21.0-51.0); %Monocytes 10.9 % (0.0-10.0); %Neutrophils 53.9 % (42.0-75.0); Hemoglobin 10.8 g/dL (12.0-16.0); Mean Corpuscular Hemoglobin 31.2 pg (27.0-31.0); Mean Corpuscular Volume 94.8 fL (78.0-98.0); Mean Platelet Volume 9.2 fL (7.4-10.4); Platelet Count 294 thou/uL (130-400); RBC Distribution Width 12.9 % (11.5-14.5); Red Blood Cell (RBC) Count 3.45 mill/uL (4.20-5.40); White Blood Cell (WBC) Count 7.9 thou/uL (4.8-10.8)
[2018-10-01 08:56] LABS: Anion Gap 14 mmol/L (10-20); BUN (Urea Nitrogen) 5 mg/dL (7.0-18.7); Calc. Creatinine Clearance 142 mL/min (70-130); Calcium 9.4 mg/dL (7.8-10.44); Carbon Dioxide 23 mmol/L (22-29); Chloride 105 mmol/L (98-107); Estimated GFR-MDRD 72; Glucose 63 mg/dL (70-105); Magnesium 1.8 mg/dL (1.6-2.6); Potassium 3.8 mmol/L (3.5-5.1); Sodium 138 mmol/L (136-145)
[2018-10-01 09:02] LABS: Iron 32 ug/dL (50-170); Iron Binding Capacity, Total 221 mcg/dL (265-497)
[2018-10-01 09:03] LABS: ALT (SGPT) 7 U/L (8-55); AST (SGOT) 18 U/L (5-34); Albumin 3.2 g/dL (3.5-5.0); Alkaline Phosphatase 64 U/L (40-150); Anion Gap 14 mmol/L (10-20); BUN (Urea Nitrogen) 5 mg/dL (7.0-18.7); Bilirubin, Total 0.3 mg/dL (0.2-1.2); Calc. Creatinine Clearance 140 mL/min (70-130); Calcium 9.5 mg/dL (7.8-10.44); Carbon Dioxide 23 mmol/L (22-29); Chloride 106 mmol/L (98-107); Estimated GFR-MDRD 71; Glucose 65 mg/dL (70-105); Iron 30 ug/dL (50-170); Iron Binding Capacity, Total 231 mcg/dL (265-497); Potassium 3.8 mmol/L (3.5-5.1); Protein, Total 7.2 g/dL (6.0-8.3); Sodium 139 mmol/L (136-145)
[2018-10-01] MEDS: Nystatin Powder 15 GM BOT TOP SCH ×2 (12:09→21:27)
[2018-10-01] MEDS: Hydrocortisone 10 mg Tablet PO SCH ×2 (12:09→21:30)
[2018-10-01] MEDS: diphenhydrAMINE 25 MG CAP PO PRN (12:10)
[2018-10-01] MEDS: traMADol HCl 50 MG TAB PO PRN (12:10)
[2018-10-01] MEDS: Ferrous Sulfate 325 MG TAB PO SCH (12:11)
[2018-10-01] MEDS: Bupropion 150 MG SR TAB PO SCH ×2 (12:11→21:22)
[2018-10-01] MEDS: Atorvastatin Calcium 40 MG TAB PO SCH (12:12)
[2018-10-01] MEDS: risperiDONE 1 MG TAB PO SCH ×2 (12:13→21:23)
[2018-10-01] MEDS: Ascorbic Acid 500 mg Chewable Tablet PO SCH (12:14)
[2018-10-01] MEDS: Cyanocobalamin (Vitamin B-12) 1,000 MCG TAB PO SCH (12:14)
[2018-10-01] MEDS: Citalopram 20 MG TAB PO SCH (12:14)
[2018-10-01] MEDS: Enoxaparin Sodium 40 MG/0.4 ML SYRINGE SC SCH (12:14)
[2018-10-01] MEDS: Sodium Chloride 0.65% Nasal 44 ML BOT EA NARE SCH ×3 (12:14→21:26)
[2018-10-01] MEDS: Nystatin Cream 30 GM TUBE TOP SCH ×3 (12:15→21:27)
[2018-10-01] MEDS: Fluconazole In NaCl,Iso-Osm 400 MG in Premix Bag 1 BAG IVPB SCH (12:15)
[2018-10-01 16:13] LABS: Folate,Hemolysate 504.9 ng/mL (Not Estab.); Hematocrit 30.9 % (34.0-46.6); RBC Folate Test Component 1634 ng/mL (>498)
[2018-10-01] MEDS ORDERED: Miconazole 2% Vaginal Cream 45 GM TUBE VAG SCH (21:00)
[2018-10-01] MEDS: Benztropine 1 MG TAB PO SCH (21:22)
[2018-10-01] MEDS: Amitriptyline HCl 100 MG TAB PO SCH (21:24)
[2018-10-01] MEDS: Clotrimazole 2% 3 Day Vag Cr 22.2 GM TUBE VAG SCH (21:25)
[2018-10-01] MEDS: Folic Acid 1 MG TAB PO SCH (21:25)
[2018-10-01 23:57] LABS: Vancomycin, Trough 46.9 ug/mL
[2018-10-02] MEDS: Acetaminophen 325 MG TAB PO SCH ×4 (00:06→18:26)
[2018-10-02] MEDS: diphenhydrAMINE 25 MG CAP PO PRN ×2 (00:06→05:39)
[2018-10-02] MEDS: Lactated Ringer's 1,000 ML IV SCH ×4 (00:20→09:02)
[2018-10-02] MEDS: Vancomycin HCl 1.75 GM in Sodium Chloride 0.9% 500 ML IVPB SCH (00:21)
--- NOTE | 2018-10-02 05:33 | PDOC.FM ---
- Subjective Subjective: NAEO. Patient endorses an 8/10 headache and 10/10 abdominal pain around her rash on exam this AM. Endorses subjective fever but has been afebrile since admission. Denies any nausea. - Objective MAR Reviewed: Yes Vital Signs & Weight: Vital Signs (12 hours) Temp Pulse Resp BP Pulse Ox 10/02/18 04:00 97.8 F 82 18 138/78 100 10/02/18 00:00 98.0 F 89 18 137/76 100 10/01/18 20:00 97.8 F 90 18 135/76 99 Weight Admit Weight 108.59 kg Weight 108.59 kg I&O: 09/30/18 10/01/18 10/02/18 06:59 06:59 06:59 Intake Total 960 2462 Balance 960 2462 Result Diagrams: 10/02/18 05:56 10/01/18 07:53 Phys Exam - Physical Examination Constitutional: NAD HEENT: moist MMs Neck: supple, full ROM Respiratory: no wheezing, no rales, no rhonchi, clear to auscultation bilateral Cardiovascular: RRR, no significant murmur Gastrointestinal: soft Neurological: non-focal, moves all 4 limbs Psychiatric: normal affect, A&O x 3 Deviation from normal: Improved intertriginous rash with interdry under pannus -: scattered ulcerations w/ surrounding erythema under pannus & on left thigh Dx/Plan (1) Cellulitis Code(s): L03.90 - CELLULITIS, UNSPECIFIED Status: Acute (2) Adrenal insufficiency Code(s): E27.40 - UNSPECIFIED ADRENOCORTICAL INSUFFICIENCY Status: Chronic (3) Bipolar 1 disorder Code(s): F31.9 - BIPOLAR DISORDER, UNSPECIFIED Status: Chronic (4) Heart murmur Code(s): R01.1 - CARDIAC MURMUR, UNSPECIFIED Status: Chronic (5) Hypothyroid Code(s): E03.9 - HYPOTHYROIDISM, UNSPECIFIED Status: Chronic (6) Intellectual disability Code(s): F79 - UNSPECIFIED INTELLECTUAL DISABILITIES Status: Chronic (7) Obesity Code(s): E66.9 - OBESITY, UNSPECIFIED Status: Chronic (8) Sepsis Code(s): A41.9 - SEPSIS, UNSPECIFIED ORGANISM Status: Resolved (9) Hypokalemia Code(s): E87.6 - HYPOKALEMIA Status: Acute - Plan Plan: 1) Cellulitus/intertrigo - Most likely fungal with possible superimposed bacterial infection due to poor wound care that has spread intertriginously. - Will continue topical nystatin and consider switching to a PO antibiotic due to significant clinical improvement & the fact that the IV vancomycin was d/c overnight due to a high trough level reported at 0015 today. Will continue PO 150mg of PO fluconazole once weekly for the next 3 weeks starting on Thursday. - Will consider de-escalating IVFs today as patient's PO intake has improved. - Wound care consulted and on board. - Will continue tylenol, ibuprofen, and tramadol PRN for pain control. 2) Sepsis (resolved) - Presented in pain with tachycardia but tachycardia resolved & WBC has downtrended. - Blood cultures negative at 48 hours, on abx and IVF 3) Adrenal insufficiency - Will resume home dose of steroids at 10mg in the AM and 5mg HS as patient has been clinically improving and completed a 4 day course of triple her home dose. 4) Bipolar - Will continue home medications. 5) Mild Intellectual disability - Pt should not be living on her own, seems unable to appropriately care for self - Reported to CM that she is living with her mother and plans to go back with her upon d/c. CM confirmed with patient's mother yesterday as well. Due to need for higher level of care for continued wound care and healing patient is currently awaiting clearance for possible d/c to SNF in [place]. 6) Heart murmur -Aware 7) Hypothyroidism - Will continue at 100mcg QD despite low TSH as illness can oftentimes falsely change TSH levels. Would prefer patient be over vs. undertreated. - Will recheck need to ensure follow-up TSH check in 6-8 weeks once illness has resolved with PCP. 8) Elevated BP w/o HTN - Aware, patient has had one slightly elevated BP since admission. Otherwise, BP has been low to normal. - Will continue to monitor. 9) Hypokalemia - Resolved as K was WNLs yesterday AM. Will continue to monitor. 10) hematochezia: - Reported by patient on 09/30. - FOBT negative and no hemorrhoids or fissures evident on ALEXIS. 11) Epistaxis - nosebleed on 09/30 but none since per the patient - Will continue saline nasal spray to be used daily and encourage vaseline QHS to prevent nosebleeds recurrent nosebleeds 12) diarrhea - Resolved as patient is now actually more constipated. Will start on a bowel regimen 2/2 tramadol. - Will continue to monitor Addendum - Attending - Attending Attestation Date/Time: 10/02/18 1005 I personally evaluated the patient and discussed the management with Dr. Gonzalez. I agree with the History, Examination, Assessment and Plan documented above with any addition or exceptions noted below. Patient continues to have pain associated with her intertrigo and skin breakdown. Vanc trough elevated, will need random level later today to determine when can resume. Likely OK to transition to PO abx. Continue wound care. Working on placement for wound care and general assistance.
[2018-10-02] MEDS: Levothyroxine Sodium 75 MCG TAB PO SCH (05:36)
[2018-10-02] MEDS: Ibuprofen 800 MG TAB PO SCH ×3 (05:36→20:30)
[2018-10-02 06:42] LABS: #Basophils 0.1 thou/uL (0.0-0.2); #Eosinphils 0.1 thou/uL (0.0-0.7); #Lymphocytes 2.4 thou/uL (1.20-3.40); #Monocytes 0.8 thou/uL (0.11-0.59); #Neutrophils 4.3 thou/uL (1.40-6.50); %Basophils 0.8 % (0.0-1.0); %Eosinophils 1.7 % (0.0-10.0); %Lymphocytes 31.1 % (21.0-51.0); %Neutrophils 56.4 % (42.0-75.0); Hemoglobin 11.2 g/dL (12.0-16.0); Mean Corpuscular HGB CONC 32.6 g/dL (32.0-36.0); Mean Corpuscular Hemoglobin 31.2 pg (27.0-31.0); Mean Corpuscular Volume 95.6 fL (78.0-98.0); Platelet Count 295 thou/uL (130-400); RBC Distribution Width 13.2 % (11.5-14.5); White Blood Cell (WBC) Count 7.7 thou/uL (4.8-10.8)
[2018-10-02] MEDS ORDERED: Senokot 8.6 MG TAB PO SCH (08:15)
[2018-10-02] MEDS: Sodium Chloride 0.65% Nasal 44 ML BOT EA NARE SCH ×3 (08:45→20:26)
[2018-10-02] MEDS: Citalopram 20 MG TAB PO SCH (08:46)
[2018-10-02] MEDS: Ascorbic Acid 500 mg Chewable Tablet PO SCH (08:46)
[2018-10-02] MEDS: Enoxaparin Sodium 40 MG/0.4 ML SYRINGE SC SCH (08:46)
[2018-10-02] MEDS: Cyanocobalamin (Vitamin B-12) 1,000 MCG TAB PO SCH (08:47)
[2018-10-02] MEDS: Atorvastatin Calcium 40 MG TAB PO SCH (08:47)
[2018-10-02] MEDS: Ferrous Sulfate 325 MG TAB PO SCH (08:47)
[2018-10-02] MEDS: Nystatin Powder 15 GM BOT TOP SCH ×2 (08:49→20:31)
[2018-10-02] MEDS: Nystatin Cream 30 GM TUBE TOP SCH ×3 (08:49→20:33)
[2018-10-02] MEDS: Bupropion 150 MG SR TAB PO SCH ×2 (08:49→20:28)
[2018-10-02] MEDS: Hydrocortisone 10 mg Tablet PO SCH ×2 (08:55→20:27)
[2018-10-02] MEDS: Polyethylene Glycol 3350 17 GM Packet PO SCH (09:04)
[2018-10-02] MEDS: risperiDONE 1 MG TAB PO SCH (20:26)
[2018-10-02] MEDS: Sulfameth/Trimethoprim DS 800-160mg TAB PO SCH (20:26)
[2018-10-02] MEDS: Folic Acid 1 MG TAB PO SCH (20:27)
[2018-10-02] MEDS: Amitriptyline HCl 100 MG TAB PO SCH (20:27)
[2018-10-02] MEDS: Benztropine 1 MG TAB PO SCH (20:27)
[2018-10-02] MEDS: Clotrimazole 2% 3 Day Vag Cr 22.2 GM TUBE VAG SCH (20:33)
[2018-10-03] MEDS: Acetaminophen 325 MG TAB PO SCH ×4 (00:05→17:24)
[2018-10-03] MEDS: diphenhydrAMINE 25 MG CAP PO PRN ×2 (01:23→21:37)
[2018-10-03] MEDS: traMADol HCl 50 MG TAB PO PRN (01:23)
[2018-10-03] MEDS: Levothyroxine Sodium 75 MCG TAB PO SCH (06:05)
[2018-10-03] MEDS: Ibuprofen 800 MG TAB PO SCH ×3 (06:06→21:42)
--- NOTE | 2018-10-03 06:21 | PDOC.FM ---
- Subjective Subjective: NAEO. Patient states that her vaginal itching has improved but still has itching under her pannus. States her rash pain is 8/10 in severity but really just when she moves. - Objective MAR Reviewed: Yes Vital Signs & Weight: Vital Signs (12 hours) Temp Pulse Resp BP Pulse Ox 10/03/18 04:00 97.3 F L 75 20 117/74 95 10/03/18 01:21 97.9 F 79 20 129/80 96 10/02/18 20:00 98.6 F 96 20 125/75 98 Weight Admit Weight 108.59 kg Weight 108.59 kg I&O: 10/01/18 10/02/18 10/03/18 06:59 06:59 06:59 Intake Total 2462 1802 480 Balance 2462 1802 480 Result Diagrams: 10/03/18 08:21 10/03/18 08:21 Phys Exam - Physical Examination Constitutional: NAD HEENT: moist MMs Neck: supple, full ROM Respiratory: no wheezing, no rales, no rhonchi, clear to auscultation bilateral Cardiovascular: RRR, no significant murmur Gastrointestinal: soft Neurological: non-focal, moves all 4 limbs Psychiatric: normal affect, A&O x 3 Deviation from normal: small areas of scattered maceration & ulceration under pannus with -: improving surrounding erythema and scaling Dx/Plan (1) Cellulitis Code(s): L03.90 - CELLULITIS, UNSPECIFIED Status: Acute (2) Adrenal insufficiency Code(s): E27.40 - UNSPECIFIED ADRENOCORTICAL INSUFFICIENCY Status: Chronic (3) Bipolar 1 disorder Code(s): F31.9 - BIPOLAR DISORDER, UNSPECIFIED Status: Chronic (4) Heart murmur Code(s): R01.1 - CARDIAC MURMUR, UNSPECIFIED Status: Chronic (5) Hypothyroid Code(s): E03.9 - HYPOTHYROIDISM, UNSPECIFIED Status: Chronic (6) Intellectual disability Code(s): F79 - UNSPECIFIED INTELLECTUAL DISABILITIES Status: Chronic (7) Obesity Code(s): E66.9 - OBESITY, UNSPECIFIED Status: Chronic (8) Sepsis Code(s): A41.9 - SEPSIS, UNSPECIFIED ORGANISM Status: Resolved (9) Hypokalemia Code(s): E87.6 - HYPOKALEMIA Status: Acute - Plan Plan: 1) Cellulitus/intertrigo - Improving. - Most likely fungal with superimposed bacterial infection due to poor wound care that has spread intertriginously. - Will continue topical nystatin and continue PO antibiotics for another 4 -8 days to complete a 10-14 day course. Will continue PO 150mg of PO fluconazole once weekly for the next 3 weeks starting on Thursday, 10/04. - Wound care consulted and on board. - Will continue tylenol, ibuprofen, and tramadol PRN for pain control. 2) Sepsis (resolved) - Presented in pain with tachycardia but tachycardia resolved & WBC has downtrended. - Blood cultures negative at 48 hours, on abx and IVF 3) Adrenal insufficiency - Will continue home dose of steroids at 10mg in the AM and 5mg HS as patient has been clinically improving and completed a 4 day course of pulse dosing 2/2 her acute illness. 4) Bipolar - Will continue home medications. 5) Mild Intellectual disability - Pt should not be living on her own, seems unable to appropriately care for self - Reported to CM that she is living with her mother and plans to go back with her upon d/c. CM confirmed with patient's mother yesterday as well. Due to need for higher level of care for continued wound care and healing patient is currently awaiting clearance for possible d/c to SNF in [place]. 6) Heart murmur -Aware 7) Hypothyroidism - Will continue at 100mcg QD despite low TSH as illness can oftentimes falsely change TSH levels. Would prefer patient be over vs. undertreated. - Will recheck need to ensure follow-up TSH check in 6-8 weeks once illness has resolved with PCP. 8) Elevated BP w/o HTN - Aware, patient has had one slightly elevated BP since admission. Otherwise, BP has been low to normal. - Will continue to monitor. 9) Hypokalemia - Resolved. Will continue to monitor. 10) hematochezia: - Reported by patient on 09/30. - FOBT negative and no hemorrhoids or fissures evident on ALEXIS. - Will continue to monitor Hgb w/ QD CBCs. 11) Epistaxis - nosebleed on 09/30 but none since per the patient - Will continue saline nasal spray to be used daily and encourage vaseline QHS to prevent nosebleeds recurrent nosebleeds 12) diarrhea - Resolved as patient is now actually more constipated. Will start on a bowel regimen 2/2 tramadol. - Will continue to monitor. 13) Vaginal itching - Scheduled to get 3rd vaginal suppository of clotrimazole tonight. - If still persistent with consider starting on flagyl to cover for possible BV. Addendum - Attending - Attending Attestation Date/Time: 10/03/18 0848 I personally evaluated the patient and discussed the management with Dr. Gonzalez. I agree with the History, Examination, Assessment and Plan documented above with any addition or exceptions noted below. Patient stable. Continue treatment for intertrigo and pain control associated with skin breakdown. Will continue to work on placement tomorrow.
[2018-10-03] MEDS: Citalopram 20 MG TAB PO SCH (08:26)
[2018-10-03] MEDS: Atorvastatin Calcium 40 MG TAB PO SCH (08:26)
[2018-10-03] MEDS: Ferrous Sulfate 325 MG TAB PO SCH (08:26)
[2018-10-03] MEDS: Ascorbic Acid 500 mg Chewable Tablet PO SCH (08:26)
[2018-10-03] MEDS: Sulfameth/Trimethoprim DS 800-160mg TAB PO SCH ×2 (08:27→21:34)
[2018-10-03] MEDS: Cyanocobalamin (Vitamin B-12) 1,000 MCG TAB PO SCH (08:29)
[2018-10-03] MEDS: risperiDONE 1 MG TAB PO SCH ×2 (08:31→21:33)
[2018-10-03] MEDS: Bupropion 150 MG SR TAB PO SCH ×2 (08:31→21:33)
[2018-10-03] MEDS: Sodium Chloride 0.65% Nasal 44 ML BOT EA NARE SCH ×3 (08:32→21:35)
[2018-10-03] MEDS: Enoxaparin Sodium 40 MG/0.4 ML SYRINGE SC SCH (08:32)
[2018-10-03] MEDS: Polyethylene Glycol 3350 17 GM Packet PO SCH (08:32)
[2018-10-03] MEDS: Nystatin Powder 15 GM BOT TOP SCH ×2 (08:33→21:36)
[2018-10-03] MEDS: Nystatin Cream 30 GM TUBE TOP SCH ×3 (08:33→21:36)
[2018-10-03] MEDS: Hydrocortisone 10 mg Tablet PO SCH ×2 (08:38→21:30)
[2018-10-03 09:02] LABS: #Basophils 0.1 thou/uL (0.0-0.2); #Eosinphils 0.4 thou/uL (0.0-0.7); #Monocytes 0.7 thou/uL (0.11-0.59); #Neutrophils 2.8 thou/uL (1.40-6.50); %Basophils 1.8 % (0.0-1.0); %Eosinophils 5.2 % (0.0-10.0); %Lymphocytes 42.9 % (21.0-51.0); %Neutrophils 40.2 % (42.0-75.0); Hemoglobin 10.8 g/dL (12.0-16.0); Mean Corpuscular HGB CONC 32.8 g/dL (32.0-36.0); Mean Corpuscular Volume 94.4 fL (78.0-98.0); Mean Platelet Volume 8.8 fL (7.4-10.4); Platelet Count 320 thou/uL (130-400); RBC Distribution Width 13.1 % (11.5-14.5); Red Blood Cell (RBC) Count 3.47 mill/uL (4.20-5.40); White Blood Cell (WBC) Count 7.1 thou/uL (4.8-10.8)
[2018-10-03 09:25] LABS: Anion Gap 16 mmol/L (10-20); BUN (Urea Nitrogen) Less than 4 mg/dL (7.0-18.7); Calc. Creatinine Clearance 128 mL/min (70-130); Calcium 9.5 mg/dL (7.8-10.44); Carbon Dioxide 23 mmol/L (22-29); Chloride 102 mmol/L (98-107); Estimated GFR-MDRD 64; Glucose 73 mg/dL (70-105); Potassium 4.7 mmol/L (3.5-5.1); Sodium 136 mmol/L (136-145)
[2018-10-03] MEDS: Benzonatate 100 MG CAP PO PRN ×2 (11:46→17:23)
--- NOTE | 2018-10-03 14:34 | PDOC.EVN ---
Event Note - Event Note Event Note: Transition of Care Note: Hospital Course from 09/28/18 - 10/03/18: The patient is a 48 YO female with a PMH significant for adrenal insufficiency, bipolar disorder, intellectual delay, and morbid obesity who presented to the ED with a CC of a worsening rash on her abdomen into her groin area that she reported had gotten progressively worse over an unknown time period. On presentation the patient was noted to be mildly tachycardic at 109 with vitals that were otherwise unremarkable. However, she also had a WBC of 16.5 and therefore met SIRS criteria so blood cultures were obtained and she was started on IV antibiotics including vancomycin, cefepime, clindamycin and IV fluconazole. Wound care was also consulted. The patient remained on IV antibiotics over the next 3 days and on 10/02 was transitioned to PO bactrim as her wound and WBC had both improved significantly. She will stay on PO bactrim through 10/07/17 to complete a 10 day antibiotic course. She was also transitioned from IV to PO fluconazole on 10/01 and will take 150mg PO once weekly over the next 3 weeks starting on 10/04/17. In addition, medical staff were instructed to use both nystatin ointment and powder on the wounds as she has both moist and dry areas to treat. Wound care treated her wounds daily. Regarding her adrenal insufficiency, the patient was given 3x her normal daily dosing for from 09/28-10/01 in the setting of her acute infection. On 10/02 she was transitioned back to her normal daily hydrocortisone dose. Regarding her intellectual delay and inability to properly care for herself, the patient has been living her mother for the last month ever since her caregiver got and moved out of her apartment. The mother reports that she is unable to adequately care for her daughter's wound and both she and the patient decided they would like the patient to have a short stay at a SNF for wound care. CM met with the patient and her mother on 10/01 and placed a referral to [facility] in [place] per the patient's request. The patient is currently medically stable and has been transitioned to PO meds and is awaiting placement for discharge.
[2018-10-03] MEDS ORDERED: Senokot 8.6 MG TAB PO SCH (21:00)
[2018-10-03] MEDS: Benztropine 1 MG TAB PO SCH (21:30)
[2018-10-03] MEDS: Folic Acid 1 MG TAB PO SCH (21:31)
[2018-10-03] MEDS: Amitriptyline HCl 100 MG TAB PO SCH (21:32)
[2018-10-03] MEDS: Clotrimazole 2% 3 Day Vag Cr 22.2 GM TUBE VAG SCH (21:36)
[2018-10-04] MEDS: traMADol HCl 50 MG TAB PO PRN (02:08)
[2018-10-04] MEDS: Benzonatate 100 MG CAP PO PRN (02:08)
[2018-10-04] MEDS: Ibuprofen 800 MG TAB PO SCH (05:08)
[2018-10-04] MEDS: diphenhydrAMINE 25 MG CAP PO PRN (05:15)
[2018-10-04] MEDS: Levothyroxine Sodium 75 MCG TAB PO SCH (05:19)
[2018-10-04] MEDS: Acetaminophen 325 MG TAB PO SCH ×3 (05:19→12:00)
--- NOTE | 2018-10-04 06:11 | PDOC.FM ---
- Subjective Subjective: Ms. Rosas is resting comfortably in bed, she reports minimal pain and improving rash. she reports being cold but has no other complaints - Objective Vital Signs & Weight: Vital Signs (12 hours) Temp Pulse Resp BP Pulse Ox 10/03/18 21:10 98.5 F 86 18 137/75 97 Weight Admit Weight 108.59 kg Weight 108.59 kg I&O: 10/02/18 10/03/18 10/04/18 06:59 06:59 06:59 Intake Total 0627 083 5705 Output Total 1100 Balance 3378 101 6940 Result Diagrams: 10/04/18 09:34 10/04/18 09:34 Phys Exam - Physical Examination Constitutional: NAD HEENT: moist MMs Respiratory: clear to auscultation bilateral Cardiovascular: RRR, no rub Gastrointestinal: soft, no distention Musculoskeletal: no edema, pulses present Neurological: moves all 4 limbs Deviation from normal: erythema along borders of pannus, dry sheets present, c/d /i Dx/Plan (1) Cellulitis Code(s): L03.90 - CELLULITIS, UNSPECIFIED Status: Acute (2) Hypokalemia Code(s): E87.6 - HYPOKALEMIA Status: Acute (3) Adrenal insufficiency Code(s): E27.40 - UNSPECIFIED ADRENOCORTICAL INSUFFICIENCY Status: Chronic (4) Bipolar 1 disorder Code(s): F31.9 - BIPOLAR DISORDER, UNSPECIFIED Status: Chronic (5) Heart murmur Code(s): R01.1 - CARDIAC MURMUR, UNSPECIFIED Status: Chronic (6) Hypothyroid Code(s): E03.9 - HYPOTHYROIDISM, UNSPECIFIED Status: Chronic (7) Intellectual disability Code(s): F79 - UNSPECIFIED INTELLECTUAL DISABILITIES Status: Chronic (8) Obesity Code(s): E66.9 - OBESITY, UNSPECIFIED Status: Chronic - Plan Plan: Cellulitus/intertrigo - Improving. - Most likely fungal with superimposed bacterial infection due to poor wound care that has spread intertriginously. - Will continue topical nystatin and continue PO antibiotics for another 4 -8 days to complete a 10-14 day course. Will continue PO 150mg of PO fluconazole once weekly for the next 3 weeks starting on Thursday, 10/04. - Wound care consulted and on board. - Will continue tylenol, ibuprofen, and tramadol PRN for pain control. Sepsis (resolved) - Presented in pain with tachycardia but tachycardia resolved & WBC has downtrended. - Blood cultures negative at 48 hours DC IV abx Adrenal insufficiency - Will continue home dose of steroids at 10mg in the AM and 5mg HS as patient has been clinically improving and completed a 4 day course of pulse dosing 2/2 her acute illness. Bipolar - Will continue home medications. Mild Intellectual disability - Pt should not be living on her own, seems unable to appropriately care for self - Reported to CM that she is living with her mother and plans to go back with her upon d/c. CM confirmed with patient's mother yesterday as well. Due to need for higher level of care for continued wound care and healing patient is currently awaiting clearance for possible d/c to SNF in [place]. Heart murmur -Aware Hypothyroidism - Will continue at 100mcg QD despite low TSH as illness can oftentimes falsely change TSH levels. Would prefer patient be over vs. undertreated. - Will recheck need to ensure follow-up TSH check in 6-8 weeks once illness has resolved with PCP. Elevated BP w/o HTN - Aware, continue to monitor. Hypokalemia - Resolved. Will continue to monitor. hematochezia - Reported by patient on 09/30. - FOBT negative and no hemorrhoids or fissures evident on ALEXIS. - Will continue to monitor Hgb w/ QD CBCs. Epistaxis - nosebleed on 09/30 but none since per the patient - Will continue saline nasal spray to be used daily and encourage vaseline QHS to prevent nosebleeds recurrent nosebleeds diarrhea - Resolved as patient is now actually more constipated. Will start on a bowel regimen 2/2 tramadol. - Will continue to monitor. Vaginal itching - s/p vag clotrimazole - If still persistent with consider starting on flagyl to cover for possible BV. Code: chem ppx: lovenox Dispo: DC pending placement Addendum - Attending - Attending Attestation Date/Time: 10/04/18 1041 I personally evaluated the patient and discussed the management with Dr. Ellison. I agree with the History, Examination, Assessment and Plan documented above with any addition or exceptions noted below. The patient's erythema is much improved. Continue current treatment. Pt has been approved for snf placement and can d/c.
[2018-10-04] MEDS ORDERED: Fluconazole 100 MG TAB PO SCH (09:00)
[2018-10-04] MEDS: Cyanocobalamin (Vitamin B-12) 1,000 MCG TAB PO SCH (09:39)
[2018-10-04] MEDS: Atorvastatin Calcium 40 MG TAB PO SCH (09:40)
[2018-10-04] MEDS: Sulfameth/Trimethoprim DS 800-160mg TAB PO SCH (09:40)
[2018-10-04] MEDS: Ascorbic Acid 500 mg Chewable Tablet PO SCH (09:40)
[2018-10-04] MEDS: Ferrous Sulfate 325 MG TAB PO SCH (09:40)
[2018-10-04] MEDS: Citalopram 20 MG TAB PO SCH (09:40)
[2018-10-04] MEDS: Sodium Chloride 0.65% Nasal 44 ML BOT EA NARE SCH (09:41)
[2018-10-04] MEDS: Enoxaparin Sodium 40 MG/0.4 ML SYRINGE SC SCH (09:41)
[2018-10-04] MEDS: Polyethylene Glycol 3350 17 GM Packet PO SCH (09:41)
[2018-10-04] MEDS: Bupropion 150 MG SR TAB PO SCH (09:41)
[2018-10-04] MEDS: Nystatin Cream 30 GM TUBE TOP SCH (09:42)
[2018-10-04] MEDS: risperiDONE 1 MG TAB PO SCH (09:43)
[2018-10-04] MEDS: Nystatin Powder 15 GM BOT TOP SCH (09:43)
[2018-10-04 09:48] LABS: #Basophils 0.1 thou/uL (0.0-0.2); #Eosinphils 0.8 thou/uL (0.0-0.7); #Lymphocytes 3.2 thou/uL (1.20-3.40); #Monocytes 0.5 thou/uL (0.11-0.59); #Neutrophils 3.1 thou/uL (1.40-6.50); %Eosinophils 9.9 % (0.0-10.0); %Lymphocytes 41.6 % (21.0-51.0); %Monocytes 6.3 % (0.0-10.0); %Neutrophils 41.2 % (42.0-75.0); Hemoglobin 12.2 g/dL (12.0-16.0); Mean Corpuscular HGB CONC 32.9 g/dL (32.0-36.0); Mean Corpuscular Hemoglobin 30.7 pg (27.0-31.0); Mean Corpuscular Volume 93.4 fL (78.0-98.0); Mean Platelet Volume 7.9 fL (7.4-10.4); Platelet Count 365 thou/uL (130-400); RBC Distribution Width 13.3 % (11.5-14.5); Red Blood Cell (RBC) Count 3.97 mill/uL (4.20-5.40); White Blood Cell (WBC) Count 7.6 thou/uL (4.8-10.8)
[2018-10-04] MEDS: Hydrocortisone 10 mg Tablet PO SCH (09:51)
[2018-10-04 10:04] LABS: Anion Gap 16 mmol/L (10-20); BUN (Urea Nitrogen) 5 mg/dL (7.0-18.7); Calc. Creatinine Clearance 109 mL/min (70-130); Calcium 9.7 mg/dL (7.8-10.44); Carbon Dioxide 27 mmol/L (22-29); Chloride 96 mmol/L (98-107); Estimated GFR-MDRD 53; Glucose 84 mg/dL (70-105); Potassium 3.8 mmol/L (3.5-5.1); Sodium 135 mmol/L (136-145)
[2018-10-04 14:15] VITALS: BP 128/79; TEMP 97.5
--- NOTE | 2018-10-05 03:51 | DIS ---
DATE OF ADMISSION: 09/28/2018 DATE OF DISCHARGE: 10/04/2018 RESIDENTS: 1. Boni Ellison DO. 2. Vidhya Gonzalez MD. ADMITTING ATTENDING: Chandrika Leung MD DISCHARGE ATTENDING: Chandrika Leung MD CONSULTS: None. PROCEDURES: None. PRIMARY DIAGNOSIS: Panniculitis/intertrigo. SECONDARY DIAGNOSES: 1. Sepsis, resolved. 2. Adrenal insufficiency. 3. Bipolar. 4. Mild intellectual disability. 5. Heart murmur. 6. Hypothyroidism. 7. Elevated blood pressure without diagnosis of hypertension. 8. Hypokalemia. 9. Hematochezia, resolved. DISCHARGE MEDICATIONS: 1. Divalproex sodium 500 mg p.o. at bedtime. 2. Benztropine mesylate 1 mg p.o. at bedtime. 3. Citalopram 20 mg p.o. daily. 4. Atorvastatin 40 mg p.o. daily. 5. Amitriptyline 50 mg p.o. at bedtime. 6. Synthroid 100 mcg p.o. daily. 7. Risperdal 1 mg p.o. daily. 8. Risperdal 2 mg p.o. at bedtime. 9. Hydrocortisone 10 mg p.o. daily. 10. Hydrocortisone 5 mg p.o. at bedtime. 11. Bupropion 150 mg p.o. b.i.d. 12. Tramadol 100 mg p.o. b.i.d. 13. Iron 28 mg p.o. daily. 14. Vitamin D3 25 mcg p.o. daily. 15. Folic acid 0.4 mg p.o. at bedtime. 16. Melatonin 1 mg p.o. at bedtime. 17. Vitamin B12 500 mcg daily. 18. Turmeric root extract 500 mg p.o. daily. 19. Vitamin D chewable tab 500 mg p.o. daily. 20. Diflucan 150 mg p.o. q.7 days for 2 additional weeks. 21. Nystatin 1 g topical b.i.d. 22. Bactrim 1 tablet p.o. b.i.d. DISCONTINUED MEDICATIONS: None. HISTORY OF PRESENT ILLNESS/HOSPITAL COURSE: See transition of care admit note on 10/03/2018. On 10/04/2018, the patient continued to be afebrile with cellulitis improving, white count remained within normal limits, deemed medically stable for residential facility. DISPOSITION: Stable. DISCHARGE INSTRUCTIONS: LOCATION: [facility] facility. DIET: Consistent carb/heart-healthy. ACTIVITY: As tolerated. FOLLOWUP: Follow up with [facility] in 3 to 4 weeks after stay at rehab/residential facility. Job ID: [id number]
== END 2018-10-04 14:15 | DRG 872 ==
LOC: ERS 04:45 → T4-B 06:45
PROVIDERS: ADMIT Family Medicine; ATTEND Family Medicine
DX: A41.9 Sepsis, unspecified organism (principal); E27.40 Unspecified adrenocortical insufficiency; L03.116 Cellulitis of left lower limb; L03.115 Cellulitis of right lower limb; L03.311 Cellulitis of abdominal wall; K92.1 Melena; E03.9 Hypothyroidism, unspecified; F70 Mild intellectual disabilities; F31.9 Bipolar disorder, unspecified; R03.0 Elevated blood-pressure reading, without diagnosis of hypertension; M54.5 Low back pain; G89.29 Other chronic pain; G47.10 Hypersomnia, unspecified; E78.5 Hyperlipidemia, unspecified; E66.9 Obesity, unspecified; Z68.39 Body mass index [BMI] 39.0-39.9, adult; E87.6 Hypokalemia; R04.0 Epistaxis; M79.3 Panniculitis, unspecified; Z88.0 Allergy status to penicillin; Z80.41 Family history of malignant neoplasm of ovary; Z80.0 Family history of malignant neoplasm of digestive organs; Z83.3 Family history of diabetes mellitus
CPT/HCPCS: 36415; 80048; 80053; 80202; 80307; 81003; 81015; 82140; 82274; 82607; 82728; 82747; 83540; 83550; 83605; 83690; 83735; 84443; 85025; 85610; 85730; 87040; 90471; 90686; 93005; 93010; 96361; 96365; 96367; 96375; G0008; J0692; J1450; J1650; J2270; J2405; J3370; J3490; J7050

== ENCOUNTER 2018-11-08 17:31 | Emergency (ER) | payer MEDICARE, MEDICAID ==
--- NOTE | 2018-11-08 18:45 | RAD ---
LEFT ANKLE THREE VIEWS: HISTORY: The patient fell with ankle pain and swelling. FINDINGS: There is a bimalleolar fracture with a transversely oriented medial malleolar fracture and a spiral t ype nondisplaced fracture of the distal fibula. It is equivocal as to whether there is a posterior m alleolar fracture present, with an area of subtle cortical lucency along the posterior tibia. IMPRESSION: Bimalleolar fracture. There may be a small posterior malleolar fracture also present. POS: [facility]
[2018-11-08] MEDS ORDERED: Ketorolac Tromethamine 30 MG/ML VIAL ONE (18:50)
[2018-11-08] MEDS ORDERED: traMADol HCl 50 MG TAB ONE (18:51)
== END 2018-11-08 19:43 | disposition home or self-care (01) ==
LOC: ERS 17:31
DX: S82.845A Nondisplaced bimalleolar fracture of left lower leg, initial encounter for closed fracture (principal); E03.9 Hypothyroidism, unspecified; F31.9 Bipolar disorder, unspecified; W17.89XA Other fall from one level to another, initial encounter
CPT/HCPCS: 27808; 96372; J1885

== ENCOUNTER 2018-11-17 07:58 | Day surgery (SDC) | payer MEDICARE, MEDICAID ==
[2018-11-17] MEDS ORDERED: Midazolam HCl 2 mg/2 ml Vial ONE (09:46)
[2018-11-17] MEDS ORDERED: Dexamethasone 4 mg/ml Vial ONE (09:46)
[2018-11-17] MEDS ORDERED: Fentanyl 100 MCG/2 ML VIAL ONE ×3 (09:46→11:30)
[2018-11-17] MEDS ORDERED: Levofloxacin 500 mg/D5W 100 ml Premix Bag ONE (10:27)
[2018-11-17] MEDS ORDERED: Clindamycin/D5W 900 mg/50 ml Premix Bag ONE (10:27)
[2018-11-17] MEDS ORDERED: Bupivacaine HCl 0.5%/Epinephrine 1:200,000/PF 30 ml Vial ONE (11:13)
--- NOTE | 2018-11-17 12:23 | RAD ---
INTRAOPERATIVE RADIOGRAPHS OF LEFT ANKLE: Date: 11/17/18 COMPARISON: 11/08/18. HISTORY: Fracture, status post open reduction and internal fixation. FINDINGS: Previously noted fracture deformities have been treated with screw and plate fixation of the distal f ibula and screw traversing region of medial malleolus. No new fracture is seen. There is anatomic ali gnment noted. IMPRESSION: Open reduction and internal fixation as detailed above. POS: [facility]
[2018-11-17] MEDS ORDERED: HYDROcodone/Acetaminophen 5/325 mg Tablet ONE (13:04)
--- NOTE | 2018-11-17 14:06 | OP ---
DATE OF PROCEDURE: 11/17/2018 PROCEDURE PERFORMED: Open reduction and internal fixation of left bimalleolar ankle fracture. PREOPERATIVE DIAGNOSIS: Left bimalleolar ankle fracture. POSTOPERATIVE DIAGNOSIS: Left bimalleolar ankle fracture. COMPLICATIONS: None. ESTIMATED BLOOD LOSS: Minimal. ANESTHESIA: General. IMPLANTS: Synthes 1/3 tubular plate with a 4.0 partially-threaded screw. INDICATIONS: Ms. Rosas is a 48-year-old female, who fell. She fractured her left ankle. She was indicated for open reduction and internal fixation to restore anatomic alignment and promote healing. Risks have been reviewed in detail. She elected to proceed with the operation. DESCRIPTION OF PROCEDURE: Ms. Rosas was identified in the preoperative holding area. Her correct extremity was marked. She was carried to the operating room. She was positioned supine. General anesthesia was induced. A multidisciplinary time-out was performed. The left lower extremity was prepped and draped in sterile fashion. We began the procedure with lateral approach to the fibula. We dissected down through the subcutaneous tissues to the bony level. The bone was exposed. The fracture was irrigated. We then reduced the fracture using reduction clamp. We applied a 7-hole 1/3 tubular plate along the lateral cortex. At this point, we checked intraoperative x-ray to assess hardware placement. We then moved to the medial aspect of the ankle. An incision was made over the medial malleolus. We dissected down to the medial malleolar fragment. We irrigated the joint and reduced the fragment. We held this with a K-wire and a reduction clamp. At this point, we placed a single 4.0 partially-threaded screw compressing the fracture. We took a final x-ray images including a stress view x-ray. These were acceptable. We then thoroughly irrigated with copious lavage. We closed with 2-0 Vicryl suture, sandra, and nylon. Sterile dressing and a splint were placed. The patient was taken to the recovery room in good condition without complication. Job ID: [id number]
[2018-11-17] MEDS ORDERED: Dexamethasone 20 MG/5 ML VIAL ONE (15:22)
[2018-11-17] MEDS ORDERED: Ketorolac Tromethamine 30 MG/ML VIAL ONE (15:22)
[2018-11-17] MEDS ORDERED: Ondansetron PF 4 MG/2 ML Vial ONE (15:22)
[2018-11-17] MEDS ORDERED: PROPOFOL 200 MG/20 ML VIAL ONE (15:22)
== END 2018-11-17 13:47 | disposition home or self-care (01) ==
LOC: SDC 07:58
PROVIDERS: ATTEND Orthopaedic Surgery
PROC: 0QSK04Z Reposition Left Fibula with Internal Fixation Device, Open Approach (ICD-10-PCS; principal; 2018-11-17)
PROC: 0QSH04Z Reposition Left Tibia with Internal Fixation Device, Open Approach (ICD-10-PCS; 2018-11-17)
DX: S82.842A Displaced bimalleolar fracture of left lower leg, initial encounter for closed fracture (principal); F17.200 Nicotine dependence, unspecified, uncomplicated; E78.5 Hyperlipidemia, unspecified; F31.9 Bipolar disorder, unspecified; E03.9 Hypothyroidism, unspecified; G47.00 Insomnia, unspecified; Z79.899 Other long term (current) drug therapy; Z88.0 Allergy status to penicillin; Z88.8 Allergy status to other drugs, medicaments and biological substances; W01.0XXA Fall on same level from slipping, tripping and stumbling without subsequent striking against object, initial encounter
CPT/HCPCS: 27814; 73610; 76000; 97116; 97139; C1713 ×3; J0670; J1100; J1885; J1956; J2250; J2405; J2704; J3010; J3490

== ENCOUNTER 2019-08-28 15:46 | Emergency (ER) | payer MEDICARE, MEDICAID ==
--- NOTE | 2019-08-28 16:59 | ULT ---
ULTRASOUND DOPPLER DUPLEX VENOUS LEFT LOWER EXTREMITY: DATE: 08/28/2019 HISTORY: 49-year-old female with left lower extremity pain TECHNIQUE: Grayscale, color-flow, and spectral analysis, of major veins of left lower extremity. FINDINGS: There is demonstration of blood flow with normal compressibility, of the left common femoral, profund a femoral, greater saphenous, femoral, popliteal, and posterior tibial, veins. IMPRESSION: Negative. No deep venous thrombosis of left lower extremity.
[2019-08-28 17:03] LABS: #Basophils 0.1 thou/uL (0.0-0.2); #Eosinphils 0.3 thou/uL (0.0-0.7); #Lymphocytes 2.9 thou/uL (1.20-3.40); #Monocytes 1.3 thou/uL (0.11-0.59); #Neutrophils 4.8 thou/uL (1.40-6.50); %Eosinophils 3.2 % (0.0-10.0); %Lymphocytes 30.7 % (21.0-51.0); %Monocytes 14.3 % (0.0-10.0); %Neutrophils 50.8 % (42.0-75.0); Hemoglobin 12.5 g/dL (12.0-16.0); Mean Corpuscular HGB CONC 32.9 g/dL (32.0-36.0); Mean Corpuscular Hemoglobin 30.8 pg (27.0-31.0); Mean Corpuscular Volume 93.7 fL (78.0-98.0); Mean Platelet Volume 8.8 fL (7.4-10.4); Platelet Count 253 thou/uL (130-400); RBC Distribution Width 12.6 % (11.5-14.5); Red Blood Cell (RBC) Count 4.04 mill/uL (4.20-5.40); White Blood Cell (WBC) Count 9.4 thou/uL (4.8-10.8)
--- NOTE | 2019-08-28 17:03 | RAD ---
RADIOGRAPH CHEST 1 VIEW: DATE: 08/28/2019 HISTORY: 49-year-old female with cough FINDINGS: There are no airspace densities, pulmonary edema, pneumothorax, or cardiomegaly. The lateral costophr enic angles are sharp. IMPRESSION: No acute cardiopulmonary findings.
[2019-08-28 17:24] LABS: ALT (SGPT) 7 U/L (8-55); AST (SGOT) 19 U/L (5-34); Alkaline Phosphatase 74 U/L (40-110); Anion Gap 12 mmol/L (10-20); BUN (Urea Nitrogen) 11 mg/dL (7.0-18.7); Bilirubin, Total 0.3 mg/dL (0.2-1.2); Calc. Creatinine Clearance 0 mL/min (70-130); Carbon Dioxide 28 mmol/L (22-29); Chloride 98 mmol/L (98-107); Estimated GFR-MDRD 50; Globulin 3.2 g/dL (2.4-3.5); Glucose 86 mg/dL (70-105); Potassium 4.6 mmol/L (3.5-5.1); Protein, Total 7.2 g/dL (6.0-8.3); Sodium 133 mmol/L (136-145)
== END 2019-08-28 18:24 | disposition home or self-care (01) ==
LOC: ERS 15:46
DX: L02.416 Cutaneous abscess of left lower limb (principal); L03.116 Cellulitis of left lower limb; E03.9 Hypothyroidism, unspecified; F31.9 Bipolar disorder, unspecified; Z79.899 Other long term (current) drug therapy
CPT/HCPCS: 36415; 71045; 80053; 84484; 85025; 93005

== ENCOUNTER 2021-03-20 15:40 | Emergency (ER) | payer MEDICARE, MEDICAID ==
[2021-03-20 16:36] LABS: #Basophils 0.1 thou/uL (0.0-0.2); #Eosinphils 0.5 thou/uL (0.0-0.7); #Lymphocytes 4.6 thou/uL (1.20-3.40); %Basophils 0.5 % (0.0-1.0); %Eosinophils 4.3 % (0.0-10.0); %Lymphocytes 41.2 % (21.0-51.0); Hemoglobin 13.8 g/dL (12.0-16.0); Mean Corpuscular HGB CONC 33.8 g/dL (32.0-36.0); Mean Corpuscular Hemoglobin 31.2 pg (27.0-31.0); Mean Corpuscular Volume 92.4 fL (78.0-98.0); Mean Platelet Volume 8.5 fL (7.4-10.4); Platelet Count 347 thou/uL (130-400); RBC Distribution Width 13.3 % (11.5-14.5)
[2021-03-20 16:57] LABS: ALT (SGPT) 15 U/L (8-55); AST (SGOT) 38 U/L (5-34); Albumin 4.3 g/dL (3.5-5.0); Alkaline Phosphatase 85 U/L (40-110); BUN (Urea Nitrogen) 7 mg/dL (7.0-18.7); Bilirubin, Total 0.6 mg/dL (0.2-1.2); Calc. Creatinine Clearance 0 mL/min (70-130); Calcium 10.2 mg/dL (7.8-10.44); Glucose 97 mg/dL (70-105); Protein, Total 8.3 g/dL (6.0-8.3)
[2021-03-20 17:06] LABS: Anion Gap 19 mmol/L (10-20); Carbon Dioxide 33 mmol/L (22-29); Chloride 92 mmol/L (98-107); Potassium 3.1 mmol/L (3.5-5.1); Sodium 141 mmol/L (136-145)
[2021-03-20] MEDS ORDERED: Potassium Chloride 20 MEQ TAB ONE (17:44)
[2021-03-20 19:18] LABS: Bacteria/HPF 4+ HPF (None Seen); Bilirubin Negative (Negative); Blood, Urine 1+ (Negative); Clarity Clear (Clear); Glucose, Urine (Dipstick) Normal (Negative); Ketone, Urine Negative (Negative); Leukocyte 250 Leu/uL (Negative); Nitrite 1+ (Negative); Protein, Urine (Dipstick) Negative (Neg-Trace); Specific Gravity, Urine 1.009 (1.002-1.036); Squamous Epithelial 0-3 HPF (0-3); Urobilinogen Normal mg/dL (Less than 2); pH, Urine 5.5 (5.0-9.0)
== END 2021-03-20 20:00 | disposition home or self-care (01) ==
LOC: ERS 15:40
DX: N39.0 Urinary tract infection, site not specified (principal); E03.9 Hypothyroidism, unspecified
CPT/HCPCS: 36415; 70450; 80053; 81003; 81015; 85025; 93005